=== PATIENT | female | born 1980 | race Caucasian/White ===

== ENCOUNTER 2017-10-29 17:39 | Emergency (ER) | payer MEDICAID ==
[~2017-10-29] VITALS: Ht 152.4 cm; Wt 62.1 kg
[2017-10-29 17:52] VITALS: Ht 152.4 cm; Wt 62.1 kg
[2017-10-29 18:52] VITALS: BP 132/95
== END 2017-10-29 18:52 | disposition home or self-care (01) ==
LOC: ED 17:39
DX: J01.90 Acute sinusitis, unspecified (principal)